=== PATIENT | male | born 1970 | race Caucasian/White ===

== ENCOUNTER 2016-10-11 17:43 | Emergency (ER) | payer OTHER ==
[~2016-10-11] VITALS: Ht 180.3 cm; Wt 89.8 kg
[2016-10-11 18:23] LABS: ABSOLUTE NEUTROPHILS 4.7 thou/uL (1.4-8.2); BASOPHILS 1.4 % (0.0-2.0); EOSINOPHILS 0.4 % (0.0-3.0); HEMATOCRIT 42.1 % (42.0-52.0); HEMOGLOBIN 14.5 gm/dL (14.0-18.0); LYMPHOCYTES 22.8 % (24.0-44.0); MANUAL DIFF NO; MCH 34.6 pg (26.0-34.0); MCHC 34.5 g/dL (28.0-37.0); MCV 100.2 fL (80.0-100.0); MONOCYTES 11.5 % (1.0-8.0); PLATELET COUNT 130 thou/uL (150-400); POLYS 63.9 % (36.0-66.0); RDW 13.4 % (10.5-14.5); WBC 7.4 thou/uL (4.0-11.0)
[2016-10-11 18:26] LABS: URINE BILIRUBIN 2+ (Negative); URINE BLOOD TRACE (Negative); URINE GLUCOSE-RANDOM* NEGATIVE (Negative); URINE KETONES TRACE (Negative); URINE NITRITE NEGATIVE (Negative); URINE PROTEIN (DIPSTICK) 2+ (Negative); URINE SPECIFIC GRAVITY >= 1.030 (1.003-1.035)
[2016-10-11 18:29] LABS: URINE COLOR AMBER
[2016-10-11 18:31] LABS: ICTOTEST (BILI CONFIRMATORY) Negative (Negative)
[2016-10-11 18:35] LABS: CALCIUM 9.9 mg/dL (8.5-10.1); CREATININE 0.9 mg/dL (0.7-1.3); POTASSIUM 3.7 mmol/L (3.5-5.1)
[2016-10-11 18:41] LABS: BACTERIA 1-9 Few /HPF (None Seen); SQUAMOUS None Seen /LPF (0-3); URINE RBC 0-2 Rare /HPF (0-2); URINE WBC None Seen /HPF (0-5)
[2016-10-11 18:42] LABS: CASTS None Seen /LPF (None Seen); CRYSTALS None Seen /LPF (None Seen)
[2016-10-11 21:01] VITALS: BP 141/97
== END 2016-10-11 21:33 | disposition home or self-care (01) ==
LOC: ER 17:43
PROVIDERS: Nurse Practitioner
DX: R56.9 Unspecified convulsions (principal); F41.9 Anxiety disorder, unspecified; F17.220 Nicotine dependence, chewing tobacco, uncomplicated; F10.99 Alcohol use, unspecified with unspecified alcohol-induced disorder

== ENCOUNTER 2016-10-11 21:45 | Inpatient (IN) | payer OTHER ==
[~2016-10-11] VITALS: Ht 180.3 cm; Wt 89.8 kg
--- NOTE | ~2016-10-11 | HC ---
[facility] [place] [address] CONSULTATION Name: JOSE KAUR Vern Room #: 250-P [facility] IN ..#: [id number] Admission: 10/11/16 Attend Phys: Dean Jeronimo DO Discharge: Date of : 70 Report #: [id number] THIS REPORT FOR: //name// CC: Frank Jeronimo HISTORY OF PRESENT ILLNESS: The patient is a 45-year-old male who presents with a generalized tonic-clonic seizure. Apparently, the patient was at work when he had a generalized seizure. The patient states that prior to the event, he did not feel well. He was discharged from the hospital, but immediately returned for a second seizure. The patient was postictal. Prior to the second event, the patient had a severe coughing fit. The patient denies drug use, but apparently he drinks alcohol. He drinks 5-6 vodka and ice tees in the evening. Apparently, this event was witnessed by a coworker. The patient was unconscious for approximately 6 minutes, he felt lightheaded beforehand. He has never had an event like this before. Recently, he has had lack of appetite and he does drink quite a bit of fluids because he works outside. He has also had some dizziness. PAST MEDICAL HISTORY: Negative. PAST SURGICAL HISTORY: Negative. MEDICATIONS: None. ALLERGIES: None. PHYSICAL EXAMINATION: VITAL SIGNS: Temperature is 37.2, pulse rate 65, respiratory rate 21, blood pressure 120/89, and bedside pulse oximetry 96% on room air. NEUROLOGIC: Cranial nerves 2-12 are grossly intact. Motor exam demonstrates symmetrical strength in all 4 extremities with tone and bulk normal. Reflexes are symmetrical throughout. Coordination reveals intact [id number]. Gait was not tested. LAB WORK: White blood cell count 5, hemoglobin 12.7, hematocrit 36.2, MCV 100.2, and platelet count 76,000. Chemistry: Sodium 132, potassium 3.6, chloride 96, carbon dioxide 26, BUN 9, creatinine 0.9, GFR 91, and glucose 92. Lactic acid 16.2, it was repeated and 6 hours later was 0.7; calcium 8.5, and CK 462. Toxicology negative. IMAGING STUDIES: Chest x-ray negative. IMPRESSION: This patient has had 2 seizures, this may be related to alcohol [facility] [address] [place] [address] CONSULTATION Name: NATASHAJOSE Room #: [address] [place] [address] [place] ..#: [id number] Admission: 10/11/16 Attend Phys: Dean Jeronimo DO Discharge: Date of : 70 Report #: [id number] use; however, the patient will need an MRI of the head with and without contrast and an electroencephalogram and will need liver functions drawn. Because he has had 2 seizures, he will not be able to drive for 6 months and I would recommend an anticonvulsant, in this case Levetiracetam 250 mg b.i.d. I thank you for your kind referral the patient, we will continue to follow him with you. <ELECTRONICALLY SIGNED> By: Lily Ayoub DO 10/12/16 1555 [id number] [id number] Lily Ayoub DO /nt
--- NOTE | ~2016-10-11 | EEG ---
[place] [address] ELECTROENCEPHALOGRAM Name: JOSE KAUR Room #: 429-P [facility] IN M.R.#: [id number] Admission: 10/11/16 Attend Phys: Dean Jeronimo DO Discharge: 10/13/16 Date of : 70 Report #: [id number] THIS REPORT FOR: //name// CC: Frank Jeronimo DATE OF SERVICE: 10/12/2016 This patient is being evaluated for seizure. EEG was done by placing the electrodes by standard 10-20 system of electrode placement. Both referential and sequential montages were used for recording. Background activity in this patient's EEG is about 11 Hz and 30 microvolts. It is a symmetrical activity. The patient became drowsy that is associated with bilateral slowing and a few vertex sharp waves. Photic stimulation is unremarkable. Throughout the record, no active epileptiform activity was noticed. IMPRESSION: This patient's EEG is within normal limits. No active epileptiform activity was noticed during this record. It might be mentioned that EEG can be normal in a patient with a seizure disorder and therefore, clinical correlation is recommended. Thank you very much for this referral. <ELECTRONICALLY SIGNED> By: Mukul Wen MD 10/14/16 1527 1813 [id number] Mukul Wen MD /nt
[2016-10-11 21:46] VITALS: BP 193/97
[2016-10-11 23:03] LABS: AMP/METHAMP Negative (Negative); BARBITURATES Negative (Negative); BENZODIAZEPINES Negative (Negative); COCAINE Negative (Negative); METHADONE Negative (Negative); OPIATES Negative (Negative); PCP Negative (Negative); THC Negative (Negative)
[2016-10-11 23:07] VITALS: BP 131/64
[2016-10-12] VITALS (12 sets, daily range): BP systolic 95–134; BP diastolic 47–90
[2016-10-12 05:32] LABS: HEMATOCRIT 36.2 % (42.0-52.0); HEMOGLOBIN 12.7 gm/dL (14.0-18.0); MCH 35.1 pg (26.0-34.0); MCV 100.2 fL (80.0-100.0); RBC 3.62 mil/uL (4.50-6.00); RDW 13.2 % (10.5-14.5)
[2016-10-12 05:47] LABS: CALCIUM 8.5 mg/dL (8.5-10.1); CREATININE 0.9 mg/dL (0.7-1.3); POTASSIUM 3.6 mmol/L (3.5-5.1)
[2016-10-12 09:38] LABS: ALBUMIN 3.3 g/dL (3.4-5.0); DIRECT BILIRUBIN 0.5 mg/dL (<0.1-0.3); TOTAL BILIRUBIN 1.9 mg/dL (<0.1-1.0); TOTAL PROTEIN 6.2 g/dL (6.4-8.2)
[2016-10-13 03:46] VITALS: BP 132/84
[2016-10-13 08:38] VITALS: BP 111/62
[2016-10-13] MEDS ORDERED: LEVETIRACETAM250 MG PO (09:51)
[2016-10-13 10:27] VITALS: BP 111/62
== END 2016-10-13 12:01 | disposition home or self-care (01) | DRG 101 ==
LOC: ER 21:45 → ICU 21:53 → EROBS 21:53 → ICU 23:07 → 4E 10-12 18:13
PROVIDERS: Nurse Practitioner; Nurse Practitioner Acute Care; Psychiatry & Neurology Neurology
DX: R56.9 Unspecified convulsions (principal); E87.2 Acidosis; F41.9 Anxiety disorder, unspecified; F17.220 Nicotine dependence, chewing tobacco, uncomplicated; Z80.9 Family history of malignant neoplasm, unspecified; Z72.89 Other problems related to lifestyle
CPT/HCPCS: 10183; 10203

== ENCOUNTER 2019-09-05 16:39 | Emergency (ER) | payer OTHER ==
[~2019-09-05] VITALS: Ht 177.8 cm; Wt 78.5 kg
[~2019-09-05 16:39] MED LIST: LEVETIRACETAM250 MG PO
[2019-09-05 17:09] LABS: EOSINOPHILS 0.2 % (0.0-3.0); HEMOGLOBIN 12.9 gm/dL (14.0-18.0); LYMPHOCYTES 15.5 % (24.0-44.0); MCH 35.1 pg (26.0-34.0); MCV 103.1 fL (80.0-100.0); MONOCYTES 6.2 % (1.0-8.0); POLYS 77.1 % (36.0-66.0); RBC 3.69 mil/uL (4.50-6.00); RDW 14.5 % (10.5-14.5); WBC 9.1 thou/uL (4.0-11.0)
[2019-09-05 17:15] LABS: CALCIUM 9.2 mg/dL (8.5-10.1); CREATININE 1.2 mg/dL (0.7-1.3); POTASSIUM 3.4 mmol/L (3.5-5.1)
[2019-09-05 17:21] LABS: ALBUMIN 3.4 g/dL (3.4-5.0); MAGNESIUM 1.3 mg/dL (1.8-2.4); TOTAL BILIRUBIN 1.4 mg/dL (<0.1-1.0)
[2019-09-05 17:45] LABS: PLATELET COUNT 89 thou/uL (150-400)
[2019-09-05 19:08] LABS: URINE BILIRUBIN 2+ (Negative); URINE BLOOD NEGATIVE (Negative); URINE CLARITY CLEAR; URINE GLUCOSE-RANDOM* 2+ (Negative); URINE KETONES TRACE (Negative); URINE LEUKOCYTES-REFLEX NEGATIVE (Negative); URINE NITRITE-REFLEX NEGATIVE (Negative); URINE SPECIFIC GRAVITY 1.025 (1.005-1.035)
[2019-09-05 19:10] LABS: ICTOTEST (BILI CONFIRMATORY) Positive (Negative); URINE COLOR AMBER; URINE PROTEIN (DIPSTICK) NEGATIVE (Negative)
[2019-09-05 19:12] LABS: AMP/METHAMP Negative (Negative); BARBITURATES Negative (Negative); BENZODIAZEPINES Negative (Negative); COCAINE Negative (Negative); METHADONE Negative (Negative); OPIATES Negative (Negative); PCP Negative (Negative)
[2019-09-05 19:36] VITALS: BP 113/90
--- NOTE | 2019-09-06 07:59 | EKG ---
[facility] [place] [address] ELECTROCARDIOGRAM REPORT Name: JOSE KAUR Room #: DEP [facility]#: [id number] Admission: 09/05/19 Attend Phys: Discharge: 09/05/19 Date of : 70 Report #: [id number] THIS REPORT FOR: cc: Frank Long MD, Curtis A. 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: [facility] : 1970 Requested By: Clay Rodriguez Order Number: [id number] MD: Kelechi Owens Measurements Intervals [place] Rate: 100 P: 25 CT: 139 QRS: -5 QRSD: 108 T: 11 QT: 362 QTc: 467 Interpretive Statements Sinus tachycardia Poor R wave progression Nonspecific T wave abnormality No previous ECG available for comparison Electronically Signed On 09-06-2019 7:57:56 CDT by Kelechi Owens [email or web address] <ELECTRONICALLY SIGNED> By: Kelechi Owens MD, FAC 09/06/19 0757 1724 172 Kelechi Owens MD, [facility] /EPI
== END 2019-09-05 19:33 | disposition home or self-care (01) ==
LOC: ER 16:39
PROVIDERS: Physician Assistant
DX: R56.9 Unspecified convulsions (principal); E87.6 Hypokalemia; E83.42 Hypomagnesemia; F17.220 Nicotine dependence, chewing tobacco, uncomplicated